=== PATIENT | male | born 1985 | race Caucasian/White ===

== ENCOUNTER 2018-05-03 12:18 | Emergency (ER) | payer BC ==
[2018-05-03] MEDS ORDERED: Tetan/Diph/Pertus SYR(Tdap)* 0.5 ML SYR(BOOSTRIX) use SYR IM ONE (12:19)
--- NOTE | 2018-05-03 12:19 | UC ---
Laceration HPI - HPI Summary HPI Summary: 33 yo male presents with left great toe laceration that occurred last night. He tells me that it was dark and he forgot his screen door was closed - walked through it and sustained a laceration under his left great toe. He cleansed the area and applied a band-aid. Here today because he is unsure when his last tetanus was and would like this updated today. Is ambulatory with minimal pain and without assistance. - History Of Current Complaint Stated Complaint: FOOT LAC Time Seen by Provider: 05/03/18 12:19 Hx Obtained From: Patient Laceration Location: Toe Mechanism Of Injury: Blunt Trauma Onset/Duration: Sudden Onset Pain Intensity: 0 Pain Scale Used: 0-10 Numeric - Allergies/Home Medications Allergies/Adverse Reactions: Allergies Allergy/AdvReac Type Severity Reaction Status Date / Time No Known Allergies Allergy Verified 05/03/18 12:34 Home Medications: Home Medications NK [No Home Medications Reported] 05/03/18 [History Confirmed 05/03/18] PMH/Surg Hx/FS Hx/Imm Hx - Additional Past Medical History Additional PMH: None Previously Healthy: Yes - Surgical History Surgical History: None - Family History Known Family History: Positive: None - Social History Occupation: Employed Full-time Lives: With Family Alcohol Use: Occasionally Substance Use Type: None Smoking Status (MU): Former Smoker Type: Cigarettes Have You Smoked in the Last Year: No Review of Systems Constitutional: Negative Skin: Other - Laceration left big toe Respiratory: Negative Cardiovascular: Negative Neurovascular: Negative Musculoskeletal: Negative Neurological: Negative Psychological: Negative All Other Systems Reviewed And Are Negative: Yes Physical Exam - Summary Physical Exam Summary: GENERAL: NAD. WDWN. No pain distress. SKIN: Left great toe: Plantar surface with 1.0cm superficial laceration. No subcutaneous tissue exposed. No active drainage/bleeding. No FB. NECK: Supple. Nontender. CHEST: No accessory muscle use. Breathing comfortably and in no distress. CV: Pulses intact NEURO: Alert. CN II-XII grossly intact. PSYCH: Age appropriate behavior. Triage Information Reviewed: Yes Vital Signs: Vital Signs: Temp Pulse Resp BP Pulse Ox 98.6 F 80 16 136/77 99 05/03/18 12:30 05/03/18 12:30 05/03/18 12:30 05/03/18 12:30 05/03/18 12:30 Laceration Course/Dx - Course/Dx Course Of Treatment: Laceration already healing. tdap updated today. Advised to apply neosporin and band-aid until well healed. - Differential Dx - Laceration/Wound Provider Diagnoses: Laceration left great toe Discharge - Sign-Out/Discharge Documenting (check all that apply): Patient Departure - Discharge Plan Condition: Stable Disposition: HOME Patient Education Materials: Laceration Without Closure (ED) Referrals: No Primary Care Phys,NOPCP [Primary Care Provider] - Additional Instructions: If you develop a fever, shortness of breath, chest pain, new or worsening symptoms - please call your PCP or go to the ED. 1) Your tdap (tetanus) was updated today. 2) Keep the wound covered with a band-aid and neosporin until well healed. - Billing Disposition and Condition Condition: STABLE Disposition: Home
[2018-05-03 12:34] VITALS: BP 136/77
== END 2018-05-03 12:51 | disposition home or self-care (01) ==
LOC: UCEAST 12:18
DX: S91.112A Laceration without foreign body of left great toe without damage to nail, initial encounter (principal); W26.9XXA Contact with unspecified sharp object(s), initial encounter; Y93.89 Activity, other specified; Y92.009 Unspecified place in unspecified non-institutional (private) residence as the place of occurrence of the external cause; Z23 Encounter for immunization; Z87.891 Personal history of nicotine dependence
CPT/HCPCS: 90471; 90715; 99202; G0463

== ENCOUNTER 2023-03-18 10:17 | Observation (INO) ==
[2023-03-18] MEDS ORDERED: NS 0.9% 1000 ml BAG 1,000 ML IV ONE ×2 (10:27→13:08)
[2023-03-18] MEDS ORDERED: Ondansetron 4 mg VIAL 2 MG/ML 2 ml VIAL IV ONE (10:27)
[2023-03-18] MEDS ORDERED: Morphine 4 MG/ML VIAL (1 ml) IV ONE (10:27)
[2023-03-18 10:58] LABS: ABS Basophils 0.1 10^3/uL (0.0-0.1); ABS Lymphocytes 1.4 10^3/uL (1.0-4.8); ABS Monocytes 0.4 10^3/uL (0.0-1.1); ABS Neutrophils 18.2 10^3/uL (1.5-7.6); Eosinophil % 0.1 %; Hematocrit 41.5 % (38-53); Hemoglobin 14.4 g/dL (13.2-16.3); Lymphocyte % 6.8 %; Mean Corpuscular Hemoglobin 29.5 pg (27-33); Mean Corpuscular Hgb Conc 34.6 g/dL (31-36); Mean Corpuscular Volume 85.3 fL (80-97); Mean Platelet Volume 9.5 fL (7.5-11.2); Platelet Count 181 10^3/uL (150-450); Red Blood Count 4.86 10^6/uL (4.06-5.63); Red Cell Distribution Width 14.1 % (12-17)
[2023-03-18] MEDS ORDERED: Piperacillin/Tazobac ADVAN 3.375 GM in NS 0.9% 100 ml BAG 100 ML IV ONE (11:19)
[2023-03-18 11:54] LABS: Albumin 4.4 g/dL (3.2-5.2); Albumin/Globulin Ratio 1.7 (1-3); C Reactive Protein 221.03 mg/L (<8.01); Calcium 9.7 mg/dL (8.6-10.3); Creatinine, Serum 1.2 mg/dL (0.67-1.17); Globulin 2.6 g/dL (2-4); Potassium 3.6 mmol/L (3.5-5.0); Total Bilirubin 1.5 mg/dL (0.2-1.0); eGFR CKD-EPI 80.4 (>60)
[2023-03-18] MEDS ORDERED: Iohexol 350 (CONTRAST) 500 ML MDV IV ONE (11:59)
[2023-03-18] MEDS ORDERED: Bupivacaine 0.25% w/EPI 10 ML SDV ONE (13:56)
[2023-03-18 14:11] LABS: Urine Appearance Clear; Urine Bilirubin Negative (Negative); Urine Blood Negative (Negative); Urine Color Yellow; Urine Glucose Negative (Negative); Urine Ketones Trace (Negative); Urine Nitrite Negative (Negative); Urine Protein Negative (Negative); Urine Specific Gravity 1.011 (1.002-1.030); Urine Urobilinogen Negative (Negative)
[2023-03-18] MEDS ORDERED: Ondansetron 4 mg VIAL 2 MG/ML 2 ml VIAL ONE (14:24)
[2023-03-18] MEDS ORDERED: Dexamethasone IV 4 MG/ML VIAL 1 ml VIAL ONE (14:24)
[2023-03-18] MEDS ORDERED: Propofol 10 MG/ML 20 ML BTL ONE (14:24)
[2023-03-18] MEDS ORDERED: Lidocaine 2% PF 5 ML VIAL ONE (14:24)
[2023-03-18] MEDS ORDERED: Midazolam 5 mg/5 ml VIAL 1 mg/ml 5 ml VIAL (5 mg) ONE (14:25)
[2023-03-18] MEDS ORDERED: fentaNYL 100 mcg/2 ml 50 MCG/ML VIAL ONE (14:25)
[2023-03-18] MEDS ORDERED: Rocuronium 50 mg VIAL 10 mg/ml 5 ml VIAL (50 mg) ONE ×2 (14:25→16:11)
[2023-03-18] MEDS ORDERED: Acetaminophen IV 1 GM/100ML 1,000 MG/100 ML BAG IV ONE (15:24)
[2023-03-18] MEDS ORDERED: HYDROmorphone 1 MG/1 ML SYRINGE IV PRN (15:42)
[2023-03-18] MEDS ORDERED: Naloxone 0.4 mg VIAL 0.4 mg/ml 1 ml VIAL IV PRN (15:42)
[2023-03-18] MEDS ORDERED: fentaNYL 100 mcg/2 ml 50 MCG/ML VIAL IV PRN (15:42)
[2023-03-18] MEDS ORDERED: Sugammadex 500 MG/5 ML 5 ml VIAL IV PUSH ONE (16:28)
[2023-03-18] MEDS ORDERED: Ondansetron 4 mg VIAL 2 MG/ML 2 ml VIAL IV PRN (16:55)
[2023-03-18] MEDS ORDERED: oxyCODONE/Acetamin 5/325 mg TAB PO PRN (16:55)
[2023-03-18] MEDS ORDERED: NS 0.9% 1000 ml BAG 1,000 ML IV SCH (17:00)
[2023-03-18] MEDS: Piperacillin/Tazobactam VIAL 3.375 GM in NS 0.9% 100 ml BAG 100 ML IVPB SCH (21:30)
[2023-03-19] MEDS: Piperacillin/Tazobactam VIAL 3.375 GM in NS 0.9% 100 ml BAG 100 ML IVPB SCH (04:50)
[2023-03-19 06:06] VITALS: BP 93/54
[2023-03-19 06:12] LABS: ABS Lymphocytes 0.8 10^3/uL (1.0-4.8); ABS Monocytes 0.3 10^3/uL (0.0-1.1); ABS Neutrophils 12.3 10^3/uL (1.5-7.6); ABS Nucleated RBC 0.01 10^3/ul; Hematocrit 35.1 % (38-53); Hemoglobin 11.9 g/dL (13.2-16.3); Lymphocyte % 6.1 %; Mean Corpuscular Hemoglobin 28.8 pg (27-33); Mean Corpuscular Hgb Conc 33.9 g/dL (31-36); Mean Corpuscular Volume 85.1 fL (80-97); Mean Platelet Volume 9.8 fL (7.5-11.2); Nucleated Red Blood Cells % 0.1 /100 WBC (0.0-0.4); Platelet Count 138 10^3/uL (150-450); Red Blood Count 4.13 10^6/uL (4.06-5.63); Red Cell Distribution Width 14.5 % (12-17); White Blood Count 13.4 10^3/uL (3.6-10.2)
[2023-03-19] MEDS ORDERED: Heparin 5000 UNITS/ML 1 mL VIAL SUBCUT SCH (07:00)
[2023-03-19 07:35] LABS: Albumin 3.3 g/dL (3.2-5.2); Albumin/Globulin Ratio 1.7 (1-3); Calcium 8.4 mg/dL (8.6-10.3); Creatinine, Serum 1.08 mg/dL (0.67-1.17); Potassium 4.2 mmol/L (3.5-5.0); Total Protein 5.3 g/dL (6.4-8.9); eGFR CKD-EPI 91.2 (>60)
== END 2023-03-19 10:50 | disposition home or self-care (01) ==
LOC: ED 10:17 → OR 14:13 → INTOOBSV 18:10 → SSU 18:10
PROVIDERS: ADMIT Surgery; ATTEND Surgery